=== PATIENT | male | born 1955 | race Caucasian/White ===

== ENCOUNTER → 2017-10-20 | Day surgery (SDC) | payer OTHER ==
[~2017-10-20] VITALS: Ht 180.3 cm; Wt 86.2 kg
--- NOTE | 2017-10-20 09:37 | Operative Report ---
Operative/Inv Procedure Report Surgery Date: 10/20/17 Name of Procedure: Removal of hardware (plate and screws) left wrist distal radius. Pre-Operative Diagnosis: 1) Painful retained hardware left wrist status post prior ORIF distal radius fracture. 2) Partial thickness FPL tendon tear related to prominent retained volar distal radius plate. Post-Operative Diagnosis: Same. Estimated Blood Loss: scant Surgeon/Errand Runner: Joseph Leach MD Anesthesia: laryngeal mask airway Monitors: EKG/blood pressure/oxygen saturation. IV Fluids: Lactated Ringer's. Implants: None. Urine Output: None. Drains: None. Specimens: Retrieved volar distal radial locking plate and multiple screws sent to pathology for documentation. Microbiology: None. Tourniquet: 62 minutes at 250 mmHg. Complications: None known. Condition: Stable. Operative Indication: Patient is a 62-year-old [id number] male [employer] worker status post ORIF left distal radius fracture with the [employer] DVR locking plate and screw systems by Dr. Hernandez around 2004 who presented to me in August for evaluation of left wrist pain. The patient indicated that he did well after his fracture repair surgery with the exception of significant restriction for forearm supination range of motion as well as some stiffness of the fingers. He stated that he had noticed a "lump" at the volar aspect of the distal forearm along the distal portion of the surgical scar from the incision about 3-4 years ago and that he has been experiencing intermittent symptoms in that area of the perceived lump ever since. His symptoms are exacerbated with thumb range of motion. He was aware of some crepitus felt with summary motion as well. An ultrasound of the wrist at the area of the patient's concern for a mass showed a solid tissue collection which was definitely not cystic. This ultimately proved to be nothing more than scar tissue at the time of exploration and hardware retrieval dictated below. X-rays did show the prior distal radius fracture to be healed but the volar plate was sitting proud off of the underlying distal radial metaphyseal bone. Ultrasonographic examination did show the FPL tendon on live imaging sliding directly over the raised and of the plate presumably causing the crepitus from friction of the tendon sliding over the prominent lip at the distal end of the plate. An MRI of the wrist was obtained and showed some heterogeneity of the FPL tendon with tendinosis or minimal chronic intrasubstance partial tearing. This correlated with the level of friction with the FPL tendon sliding of the distal end of the volar plate. We discussed management options including trying a local steroid injection to the area of discomfort. We did also discuss surgical intervention with elective removal of the hardware (locking plate and screws) from the volar distal radius as well as possible debridement of the overlying flexor tendons if needed as well as debridement of scar tissue as needed. 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 The patient was advised that even with successful retrieval of the hardware that his forearm and wrist and finger motion would not be expected to be improved. He was also advised that with hardware removal that this would do nothing to slow down the arthrosis that is starting to develop in the wrist. After answering all of the patient's questions in reviewing these issues at length the patient did decide that he would like to move forward with elective hardware removal and debridement and cleanup of tissues as indicated. Surgical consent was obtained. Operative/Procedure Note Note: The patient was brought to the operating room and placed on the operating room table in the supine position. General anesthesia via LMA was induced by the anesthesiologist all bony prominences were well-padded. A dose of IV antibiotics were given for infection prophylaxis. Both legs were placed into Compression sleeves to minimize risk of lower extremity venous pooling and blood clot formation and propagation. A well-padded tourniquet was then applied to the proximal portion of the left arm. The left upper extremity was then prepped and draped in usual sterile fashion. The patient's forearm was supinated. This was difficult given his restricted range of motion and most of the positioning to bring the volar surface of the forearm and volar wrist into view actually came through rotation through the shoulder. The patient's prior surgical incision showed a scar that was well- healed a well matured. The scar was marked out with a skin marker as the plan was to use the same surgical incision for hardware retrieval. After the skin was marked the extremity was exsanguinated and the pneumatic tourniquet was inflated to a pressure of 250 mmHg. The skin incision was created with a #15 scalpel blade working through the markings for the old scar. Sharp dissection continued down to the skin. Once under the skin we had scar tissue adhesions to the subdermal layer. These were freed up to a limited degree. We continued to dissect more deeply with sharp dissection and with use of Metzenbaum scissors. We freed up the skin and subcutaneous tissues from further additional underlying scar so that the skin could be mobilized radially and ulnarly for retraction. We had visualization of the FCR tendon radially as well as the palmaris longus tendon. Adherent to the palmaris longus on its radial side slightly deeper to the palmaris longus was a slightly atrophic median nerve. The median nerve was dissected free of its adhesions to the surrounding tissues and a limited epineurotomy of the nerve was performed to relieve scar tissue compression about the nerve and the distal volar forearm. Retractors were placed into the wound. We explored distally at the area of the patient's complaint of a "lump". This ultimately proved to not be any distinct mass but was essentially some scar tissue that was heaped up and prominent over the volar distal radial locking plate distal margin. We debrided the scar tissue to debulk the area. We continued to dissect with a combination of sharp dissection and use of a periosteal elevator and some electrocautery until we were able to visualize the underlying [employer] DVR locking plate and screws. Pulmonary retractors were placed. All hardware was removed. Admittedly this was somewhat difficult as the screws were overgrown with bone that needed to be cleaned out of the area with an osteotome and with use of a drill to open up the screwdriver holes in the heads of the screws. Eventually the cortical screws in the longitudinal limb of the plate were removed. We did also retrieve the locking screws in the distal end of the plate using the smaller screwdriver. The C-arm was brought in to make sure that we would not missing retrieval of any screws. The plate needed to be freed up from the underlying bone as the bone had started to grow up about the plate. This was freed up with use of the osteotome. Eventually the osteotome was able to be worked under the plate and it was used to lever the plate off of the underlying bone freeing the plate up. The plate and screws were packaged to be sent to pathology for documentation and as the patient indicated that he would like to keep the hardware after the pathology department was finished with documentation. The bone and soft tissues were irrigated. Prominent sharp bone margins were now debrided with a rongeur to lower the profile and debulk the callus about the distal radius. The remaining bone was less prominent and was generally smooth after this was performed. Of note as we were dissecting to get down to the plate there was significant scar tissue formation initially about the FCR tendon which was debrided so that the tendon could be mobilized and retracted. We now had visualization of the FPL tendon. This was encased in some scar tissue which was debrided on the volar surface of the FPL tendon. Examination of the deep surface of the FPL tendon showed significant tendinosis and fraying consistent with the tendon rubbing over the distal margin of the volar plate. We everted the FPL tendon and then debrided the deep surface of the FPL tendon to remove the area of fraying of the tendon leaving healthier-appearing tendon in place after the debridement of the frayed portion of the tendon. The remaining tendon was felt to be adequate for function. We now turned our attention towards closure. The soft tissues and the bone were copiously irrigated multiple times. The tourniquet was deflated. Hemostasis was achieved with a combination of manual pressure and limited electrocautery. The soft tissues were allowed to fall into loose normal approximation. The soft tissue repair itself consisted of direct approximation of the skin margins using multiple interrupted vertical mattress sutures with 3-0 Prolene suture material. The wound was washed and dried. Adaptic dressing was placed over the suture line followed by sterile gauze fluffed dressings. This was held in place with Kerlix gauze wrap which was then over wrapped with Jone bandages for compression and to hold the gauze dressings in place. The left upper extremity was placed into a Blake pillow for elevation. The patient was awakened from general anesthesia and transferred to the stretcher and brought to the recovery room in stable condition having tolerated the procedure well. Findings: 1) All hardware successfully retrieved. 2) Tendinosis and partial-thickness tearing/fraying deep surface FPL tendon. 3) Extensive scar tissue buildup about tendons and the median nerve. 4) Median nerve somewhat hypotrophic seemingly secondary to scar tissue constriction. Discharge Disposition: PACU
== END ==
LOC: STS 09-29 07:00
DX: T84.84XA Pain due to internal orthopedic prosthetic devices, implants and grafts, initial encounter (principal); M19.032 Primary osteoarthritis, left wrist; M67.834 Other specified disorders of tendon, left wrist; L90.5 Scar conditions and fibrosis of skin; M10.9 Gout, unspecified; M50.30 Other cervical disc degeneration, unspecified cervical region
CPT/HCPCS: J0131; J0690; J1100; J2250; J2405